=== PATIENT | female | born 1990 | race Caucasian/White ===

== ENCOUNTER 2019-12-24 15:45 | Emergency (ER) | payer OTHER, SELFPAY ==
[2019-12-24 16:00] VITALS: BP 145/98; PULSE 77; RESP 18; TEMP 37.3; O2SAT 98
--- NOTE | 2019-12-24 16:08 | ED.SKABFB ---
HPI - Skin/Abscess/Foreign Bdy General Chief complaint: Skin/Abscess/Foreign Body Stated complaint: needs refills for head injury? Time Seen by Provider: 12/24/19 16:08 Source: patient History of Present Illness HPI narrative: Patient presents with sores to her scalp. Patient states when she was withdrawing from opiates she picked at her scalp and had several lesions that became infected. Patient states it got better with clindamycin but it has returned. Patient denies any fever no drainage from the areas patient denies any other concerns or symptoms. Patient has not applied anything [id number] for symptoms patient states she was called in a prescription did not pick it up on time and the prescription had been discontinued. Related Data Home Medications Medication Instructions Recorded Confirmed buprenorphine-naloxone See Rx Instructions .ROUTE .COMPLEX 12/24/19 12/24/19 Allergies Allergy/AdvReac Type Severity Reaction Status Date / Time No Known Allergies Allergy Verified 12/24/19 16:11 Review of Systems Review of Systems: Narrative: CONSTITUTIONAL: Denies fever, chills, or sweats. EYES: Denies visual changes, redness, or discharge. ENT: Denies rhinorrhea, congestion, sore throat, or otalgia. CARDIOVASCULAR: Denies chest pain, palpitations, or edema. RESPIRATORY: Denies cough or dyspnea. GASTROINTESTINAL: Denies abdominal pain, nausea, vomiting, or diarrhea. GENITOURINARY: Denies dysuria or hematuria. SKIN: Denies rash or itching. MUSCULOSKELETAL: Denies back pain, joint pain, or myalgia. NEUROLOGIC: Denies headache, numbness, or weakness. PSYCHIATRIC: Denies anxiety or depression. PMFSH Comments At time of signature, agree with nursing past medical, surgical, social and family history. There is no relevant family history pertinent to the presenting complaint Exam Narrative: Exam Narrative: GENERAL: Well-appearing, well-nourished, and in no acute distress. HEAD: Normocephalic, atraumatic. EYES: PERRLA and EOMI. ENT: Nares clear, no rhinorrhea or epistaxis. Mucous membranes moist. NECK: Supple. CHEST: Clear to auscultation. No respiratory distress. HEART: Regular rate and rhythm. No murmur heard. Normal peripheral pulses. ABDOMEN: Soft, nontender, nondistended, normal active bowel sounds. EXTREMITIES: Normal range of motion. No edema. SKIN: Warm, dry, no rash. NEURO: No focal deficits. Alert and oriented x3. [place] Coma Scale Eye Opening: Spontaneous 4 [place] Coma Scale Motor: Obeys Commands 6 [place] Coma Scale Verbal: Oriented 5 [place] Coma Scale Total 15 Dry scaly reddened areas to multiple places of the scalp. No drainage some redness some concern for cellulitis. Course Vital Signs Vital signs: Vital Signs Temperature 37.3 C 12/24/19 16:00 Pulse Rate 77 12/24/19 16:00 Respiratory Rate 18 12/24/19 16:00 Blood Pressure 145/98 H 12/24/19 16:00 Pulse Oximetry 98 12/24/19 16:00 Temperature 37.3 C 12/24/19 16:10 Pulse Rate 77 12/24/19 16:10 Respiratory Rate 18 12/24/19 16:10 Blood Pressure 145/98 H 12/24/19 16:10 Pulse Oximetry 98 12/24/19 16:10 Please RICK schedule a followup visit with your personal physician for further evaluation and treatment. Including recheck and discussion of your blood pressure. If your symptoms persist, change or worsen significantly before you can contact your personal physician then please, without delay, go to the emergency department for further evaluation MDM - Skin/Abscess/Foreign Bdy Differential Diagnosis Differential diagnosis: Likely abscess of skin or subcutaneous tissue, viral exanthem, urticaria, herpes zoster, allergic reaction to drug, cellulitis, insect bites, impetigo and contact dermatitis Critical Care Time Critical Care Time Critical Care Time: No Discharge Plan Discharge Clinical Impression: Cellulitis, Scalp abrasion, infected Patient Disposition: Home, Self-Care Condition: Stable Instructions
[2019-12-24 16:10] VITALS: BP 145/98; PULSE 77; RESP 18; TEMP 37.3; O2SAT 98
== END 2019-12-24 16:20 | disposition home or self-care (01) ==
PROVIDERS: Emergency Provider Nurse Practitioner Family; PCP Internal Medicine
DX: L03.811 Cellulitis of head [any part, except face] (principal); S00.01XA Abrasion of scalp, initial encounter; X58.XXXA Exposure to other specified factors, initial encounter
CPT/HCPCS: 99213; G0463

== ENCOUNTER 2024-03-08 13:35 | Emergency (ER) | payer OTHER, SELFPAY ==
[2024-03-08 13:43] VITALS: BP 103/68; PULSE 100; RESP 18; TEMP 36.6; O2SAT 100
== END 2024-03-08 13:47 | disposition left against medical advice (07) ==
LOC: EXPBETH 13:40
PROVIDERS: Emergency Provider Nurse Practitioner Family
DX: Z53.21 Procedure and treatment not carried out due to patient leaving prior to being seen by health care provider (principal)
CPT/HCPCS: 99199